=== PATIENT | female | born 1970 | race African-American/Black ===

== ENCOUNTER 2018-06-28 13:22 | Emergency (ER) | payer OTHER ==
[2018-06-28 13:41] VITALS: BP 122/78; PULSE 73; TEMP 97.9; BMI 25.6
[2018-06-28] MEDS ORDERED: DEXAMETHASONE SOD PHOSPHATE 10 MG/1 ML VIAL IM ONE (15:37)
[2018-06-28] MEDS ORDERED: DEXAMETHASONE SOD PHOSPHATE 10 MG/1 ML VIAL ONE (15:42)
--- NOTE | 2018-06-28 15:45 | PDOC ---
History of Present Illness - General Chief Complaint: Allergic Reaction Stated Complaint: SKIN RASH Time Seen by Provider: 06/28/18 15:10 History Source: Patient Exam Limitations: Clinical Condition - History of Present Illness Initial Comments: 06/28/18 16:32 Patient with no significant past medical history present with complaint of rash to face, anterior posterior neck area after using her shampoo. Patient reported ALLERGIC reaction to certain chemicals in hair shampoos but uncertain what caused this ALLERGIC reaction. Reported itching over rash area. Denies shortness of breath, choking sensation, lip or tongue swelling. Denies any other symptoms Timing/Duration: other (3 days) Past History - Past Medical History Allergies/Adverse Reactions: Allergies Allergy/AdvReac Type Severity Reaction Status Date / Time No Known Allergies Allergy Verified 06/28/18 13:37 Home Medications: Ambulatory Orders Hydrocortisone 2.5% Lotion [Hytone 2.5% Lotion -] 1 applic TP BID #1 bottle Hydroxyzine HCl 25 mg PO Q8H PRN #20 tablet 06/28/18 Prednisone [Deltasone] 20 mg PO BID 5 Days #10 tablet 06/28/18 - Suicide/Smoking/Psychosocial Hx Smoking History: Never smoked Hx Alcohol Use: No Drug/Substance Use Hx: No Review of Systems - Review of Systems Able to Perform ROS?: Yes Is the patient limited Persian proficient: No Constitutional: No: Chills, Fever, Malaise HEENTM: No: Symptoms Reported Respiratory: No: Symptoms reported, Shortness of Breath Cardiac (ROS): No: Symptoms Reported, Lightheadedness, Chest Tightness ABD/GI: No: Symptoms Reported Musculoskeletal: No: Symptoms Reported Integumentary: Yes: See HPI, Pruritus (over rash area), Rash (to face, neck and upper back) All Other Systems: Reviewed and Negative *Physical Exam - Vital Signs Last Vital Signs Temp Pulse Resp BP Pulse Ox 97.9 F 73 20 122/78 99 06/28/18 13:37 06/28/18 13:37 06/28/18 13:37 06/28/18 13:37 06/28/18 13:37 - Physical Exam Comments: 06/28/18 16:35 GENERAL: Well developed, well nourished. Awake and alert. No acute distress. HEENT: Normocephalic, atraumatic. PERRLA, EOMI. No conjunctival pallor. Sclera are non-icteric. Moist mucous membranes. Oropharynx is clear. NECK: Supple. Full ROM. CARDIOVASCULAR: Regular rate and rhythm. No murmurs, rubs, or gallops. Distal pulses are 2+ and symmetric. PULMONARY: No evidence of respiratory distress. Lungs clear to auscultation bilaterally. No wheezing, rales or rhonchi. ABDOMINAL: Soft. Non-tender. Non-distended. No rebound or guarding. No organomegaly. Normoactive bowel sounds. MUSCULOSKELETAL Normal range of motion at all joints. SKIN: Warm and dry. Normal capillary refill. Multiple urticarial rash to face, anterior neck area and upper back without excoriations. NEUROLOGICAL: Alert, awake, appropriate. Gait is normal without ataxia. PSYCHIATRIC: Cooperative. Good eye contact. Appropriate mood General Appearance: Yes: Nourished, Appropriately Dressed. No: Apparent Distress Medical Decision Making - Medical Decision Making 06/28/18 16:36 Patient with no significant past medical history present with for evaluation of ALLERGIC reaction after using hair product. Exam significant for multiple urticarial rash to face, anterior neck and posterior upper back without excoriations. Symptoms consistent with ALLERGIC reaction. Sliding Decadron 10 mg IM ordered. Patient on by mouth prednisone, hydroxyzine and directed and antihistamine with dermatology follow-up. *DC/Admit/Observation/Transfer Diagnosis at time of Disposition: Allergic dermatitis - Discharge Dispostion Disposition: HOME Condition at time of disposition: Stable Decision to Admit order: No - Prescriptions Prescriptions: Hydrocortisone 2.5% Lotion [Hytone 2.5% Lotion -] 1 applic TP BID #1 bottle Hydroxyzine HCl 25 mg PO Q8H PRN #20 tablet PRN Reason: allergic reaction Prednisone [Deltasone] 20 mg PO BID 5 Days #10 tablet - Referrals Referrals: Mile Jane MD [Staff Physician] - Karine Doherty [Non Staff, Medical] - - Patient Instructions Printed Discharge Instructions: Contact Dermatitis Additional Instructions: Take medication as prescribed. Follow-up referred messenger copy Dr. Jaen for ALLERGIC reaction. Also follow-up with referred ALLERGY clinic for possible ALLERGY testing. - Post Discharge Activity
== END 2018-06-28 15:48 | disposition home or self-care (01) ==
LOC: JERFT 13:22
PROC: 3E0233Z Introduction of Anti-inflammatory into Muscle, Percutaneous Approach (ICD-10-PCS; principal; 2018-06-28)
DX: T55.0X1A Toxic effect of soaps, accidental (unintentional), initial encounter (principal); L23.5 Allergic contact dermatitis due to other chemical products; Y92.018 Other place in single-family (private) house as the place of occurrence of the external cause
CPT/HCPCS: 96372; 99281-25; J1100

== ENCOUNTER 2018-07-18 20:39 | Emergency (ER) | payer OTHER ==
--- NOTE | 2018-07-18 20:44 | PDOC ---
Rapid Medical Evaluation Time Seen by Provider: 07/18/18 20:42 Medical Evaluation: Allergies Allergy/AdvReac Type Severity Reaction Status Date / Time No Known Allergies Allergy Verified 06/28/18 13:37 07/18/18 20:42 I have performed a brief in-person evaluation of this patient. The patient presents with a chief complaint of: "I have a head cold for 3-4 days." Pertinent physical exam findings: OP- mildly erythematous. Lungs CTAB I have ordered the following: nothing The patient will proceed to the ED for further evaluation. Discharge Disposition - Diagnosis URI (upper respiratory infection) - Referrals - Patient Instructions - Post Discharge Activity
[2018-07-18 20:45] VITALS: BP 133/74; PULSE 85; TEMP 98.2; BMI 24.7
--- NOTE | 2018-07-18 21:54 | PDOC ---
History of Present Illness - General Chief Complaint: Cold Symptoms Stated Complaint: COLD SYMPTOMS Time Seen by Provider: 07/18/18 20:42 - History of Present Illness Initial Comments: 07/18/18 21:52 48-year-old female without comorbidities presents for evaluation of sinus pressure and congestion 3 days without fever Past History - Past Medical History Allergies/Adverse Reactions: Allergies Allergy/AdvReac Type Severity Reaction Status Date / Time No Known Allergies Allergy Verified 07/18/18 20:44 Home Medications: Ambulatory Orders Hydroxyzine HCl 25 mg PO Q8H PRN #20 tablet 06/28/18 Prednisone [Deltasone] 20 mg PO BID 5 Days #10 tablet 06/28/18 Halobetasol Prop 0.05% Tp Crm [Ultravate (Nf) -] 1 applic TP BID #60 gm Amox-Tr/K Cl [Augmentin - 875Mg Tablet] 1 tab PO BID #20 tablet 07/18/18 Budesonide [Rhinocort Allergy] 1 spray NS ONCE #1 spray.pump 07/18/18 COPD: No - Suicide/Smoking/Psychosocial Hx Smoking History: Never smoked Hx Alcohol Use: No Drug/Substance Use Hx: No Review of Systems - Review of Systems Constitutional: No: Fever HEENTM: Yes: Nose Congestion *Physical Exam - Vital Signs Last Vital Signs Temp Pulse Resp BP Pulse Ox 98.2 F 85 20 133/74 98 07/18/18 20:42 07/18/18 20:42 07/18/18 20:42 07/18/18 20:42 07/18/18 20:42 - Physical Exam Comments: 07/18/18 21:52 HEAD: NC/AT tenderness frontal and maxillary sinuses EYES: Conjuntiva clear Ears: Canals and TM's normal NOSE: No d/c THROAT: Moist mucous membrances, oral pharanx clear, uvula midline NECK: Supple without adenopathy CARDIAC: S1 S2 LUNGS: CTA Full and Equal breath sounds ABDOMEN: Soft NT ND MS: Full ROM in all joints without edema NEUROLOGIC: No gross sensory or motor deficits, NVID SKIN: Normal color and temperature no lesions or rashes Medical Decision Making - Medical Decision Making 07/18/18 21:52 We'll treat with Augmentin and Rhinocort *DC/Admit/Observation/Transfer Diagnosis at time of Disposition: URI (upper respiratory infection), Sinusitis - Discharge Dispostion Disposition: HOME Condition at time of disposition: Stable Decision to Admit order: No - Prescriptions Prescriptions: Amox-Tr/K Cl [Augmentin - 875Mg Tablet] 1 tab PO BID #20 tablet Budesonide [Rhinocort Allergy] 1 spray NS ONCE #1 spray.pump - Referrals Referrals: Gloria Jensen MD [Primary Care Provider] - Taqueria Rodriguez MD [Staff Physician] - - Patient Instructions Printed Discharge Instructions: Sinusitis, DI for Sinusitis Additional Instructions: Please take the antibiotics as directed and use the nasal spray as directed. Follow-up with ENT in one to 2 days for further evaluation and treatment options and return to the emergency room should symptoms worsen or go unresolved. - Post Discharge Activity
== END 2018-07-18 22:05 | disposition home or self-care (01) ==
LOC: JERFT 20:39
DX: J01.90 Acute sinusitis, unspecified (principal); J06.9 Acute upper respiratory infection, unspecified
CPT/HCPCS: 99281-25

== ENCOUNTER 2018-12-29 14:03 | Emergency (ER) | payer OTHER ==
[2018-12-29 14:17] VITALS: BP 140/93; PULSE 96; TEMP 98.1; BMI 25.6
--- NOTE | 2018-12-29 14:17 | PDOC ---
Rapid Medical Evaluation Chief Complaint: Back Pain Time Seen by Provider: 12/29/18 14:13 Medical Evaluation: Allergies Allergy/AdvReac Type Severity Reaction Status Date / Time No Known Allergies Allergy Verified 07/18/18 20:44 12/29/18 14:13 48 year old female c/o low back pain reports that she has used cocaine in past with pain relief. reports muscle relaxer usually helps with pain. patient reports she chronically has numbness to extremity. denies incontinence of bowel and urine PE: Patient alert ox3.; A: back pain P: patient to the ER for further management of care Discharge Disposition - Diagnosis Low back pain Qualifiers: Chronicity: acute Back pain laterality: unspecified Sciatica presence: without sciatica Qualified Code(s): M54.5 - Low back pain - Referrals - Patient Instructions - Post Discharge Activity
[2018-12-29] MEDS ORDERED: LIDOCAINE 5% TOPICAL PATCH TP ONE (15:39)
[2018-12-29] MEDS ORDERED: CYCLOBENZAPRINE HCL 10 MG TABLET (FP) PO ONE (15:53)
--- NOTE | 2018-12-29 15:53 | PDOC ---
History of Present Illness - General Chief Complaint: Back Pain Stated Complaint: BACK PAIN Time Seen by Provider: 12/29/18 14:13 History Source: Patient Exam Limitations: No Limitations Past History - Past Medical History Allergies/Adverse Reactions: Allergies Allergy/AdvReac Type Severity Reaction Status Date / Time No Known Allergies Allergy Verified 12/29/18 14:17 Home Medications: Ambulatory Orders Hydroxyzine HCl 25 mg PO Q8H PRN #20 tablet 06/28/18 Prednisone [Deltasone] 20 mg PO BID 5 Days #10 tablet 06/28/18 Halobetasol Prop 0.05% Tp Crm [Ultravate (Nf) -] 1 applic TP BID #60 gm Amox-Tr/K Cl [Augmentin - 875Mg Tablet] 1 tab PO BID #20 tablet 07/18/18 Budesonide [Rhinocort Allergy] 1 spray NS ONCE #1 spray.pump 07/18/18 Cyclobenzaprine HCl [Flexeril -] 10 mg PO TID PRN #21 tablet 12/29/18 Oxycodone HCl/Acetaminophen [Percocet 5-325 mg Tablet] 1 tab PO Q6H PRN #6 tablet MDD 4 12/29/18 COPD: No Psychiatric Problems: Yes (ANXIETY) - Immunization History Immunization Up to Date: Yes - Psycho Social/Smoking Cessation Hx Smoking History: Never smoked Have you smoked in the past 12 months: No Information on smoking cessation initiated: No Hx Alcohol Use: No Drug/Substance Use Hx: Yes (COCAINE PREVIOUS) *Physical Exam - Vital Signs Last Vital Signs Temp Pulse Resp BP Pulse Ox 98.1 F 96 H 17 140/93 97 12/29/18 14:12/29/18 14:12/29/18 14:12/29/18 14:12/29/18 14:09 - Physical Exam General Appearance: No: Apparent Distress Respiratory/Chest: positive: Lungs Clear, Normal Breath Sounds. negative: Respiratory Distress Cardiovascular: positive: Regular Rhythm, Regular Rate, S1, S2. negative: Murmur Gastrointestinal/Abdominal: positive: Normal Bowel Sounds, Soft. negative: Tender, Distended, Guarding, Rebound Musculoskeletal: positive: Other (minimal lumbar paraspinal muscles). negative : CVA Tenderness, Vertebral Tenderness Neurologic: positive: Alert, Normal Mood/Affect, Motor Strength 5/5, Other ( ambulatory). negative: Sensory Deficit Medical Decision Making - Medical Decision Making 48 y/o F hx of anxiety, chronic LBP, herniated disc presents with acute on chronic LBP x 5 days. Mentions does a lot of heavy lifting so not sure if that exacerbated her pain. Last MRI of her back was 2 years ago. Denies trauma, fever URI sxs, sob, cp, abd pain, vomiting, weakness of extremities, prior back surgeries. Patient states she has been using percocet/oxycodone from family members to help with pain and that is the only thing which helps with pain. Acute on chronic LBP Istop reviewed and no controlled substances filled in the past 12 months Concern for substance abuse Tylenol, Ibuprofen, Toradol, Lido patch were all suggested but patient refused all of those meds Patient refused to take muscle relaxer without getting a pain medication D/W Dr. Recio - states okay to give 1 percocet for now and can give few pills to go home until she can see her PCP Also given Flexeril with meds 12/29/18 15:43 Discharge - Discharge Information Problems reviewed: Yes Clinical Impression/Diagnosis: Low back pain Qualifiers: Chronicity: acute Back pain laterality: unspecified Sciatica presence: without sciatica Qualified Code(s): M54.5 - Low back pain Condition: Stable Disposition: HOME - Admission No - Additional Discharge Information Prescriptions: Cyclobenzaprine HCl [Flexeril -] 10 mg PO TID PRN #21 tablet PRN Reason: Muscle Spasms Oxycodone HCl/Acetaminophen [Percocet 5-325 mg Tablet] 1 tab PO Q6H PRN #6 tablet MDD 4 PRN Reason: Pain Prescription Drug Monitoring Program (I-STOP) results: I-STOP reviewed and no issues identified - Follow up/Referral Referrals: Gloria Jensen MD [Primary Care Provider] - 2 Days - Patient Discharge Instructions Patient Printed Discharge Instructions: DI for Low Back Pain Additional Instructions: Thank you for choosing [facility]. It was a pleasure taking care of you. You may take Motrin 600 mg every 6 hours by mouth as needed for mild to moderate pain. Take Motrin with food. For severe pain, you may take Percocet. This medication can make you constipated for which you may take over the counter Senna tablets as needed. This medication can also make you drowsy so please be cautious with driving or performing heavy physical work. Take Flexeril as needed for muscle spasms. This medication can also make you drowsy Please follow-up with your doctor for further evaluation Return to the Emergency Department if your symptoms worsen or persist, you have chest pain, severe abdominal pain, vomiting, weakness of extremities (arms and/ or legs), difficulty controlling bowel or bladder movements or other concerning symptoms. - Post Discharge Activity
[2018-12-29] MEDS ORDERED: CYCLOBENZAPRINE HCL 10 MG TABLET (FP) ONE (16:00)
== END 2018-12-29 16:24 | disposition home or self-care (01) ==
LOC: JERFT 14:03
DX: M54.5 Low back pain (principal); F41.9 Anxiety disorder, unspecified
CPT/HCPCS: 99282-25

== ENCOUNTER 2019-01-04 12:45 | Emergency (ER) | payer OTHER ==
--- NOTE | 2019-01-04 12:48 | PDOC ---
Rapid Medical Evaluation Time Seen by Provider: 01/04/19 12:47 Medical Evaluation: Allergies Allergy/AdvReac Type Severity Reaction Status Date / Time No Known Allergies Allergy Verified 12/29/18 14:17 01/04/19 12:47 CC: "My throat is swelling." PE: Sublingual lesion noted. No firm to palpation. No submandibular tightness present. Uvula midline. No stridor, drooling OP edema. Lungs CTAB. Started mupirocin for facial rash 01/01. Orders: Benadryl, pepcid, solumedrol Patient will proceed to ER for further evaluation. 01/04/19 12:49 Discharge Disposition - Diagnosis Sensation of swollen throat - Referrals - Patient Instructions - Post Discharge Activity
[2019-01-04 12:52] VITALS: TEMP 98; BMI 25.6
[2019-01-04] MEDS ORDERED: methylPREDNISolone NA SUCC 125 MG/2 ML VIAL IVPUSH ONE (12:53)
[2019-01-04] MEDS ORDERED: FAMOTIDINE 20 MG/50 ML IVPB 20 MG/50 ML MG IVPB ONE ×2 (12:53→13:02)
[2019-01-04] MEDS ORDERED: methylPREDNISolone NA SUCC 125 MG/2 ML VIAL ONE (13:02)
--- NOTE | 2019-01-04 13:18 | PDOC ---
History of Present Illness - General Chief Complaint: Allergic Reaction Stated Complaint: ALLERGIC REACTION Time Seen by Provider: 01/04/19 12:47 History Source: Patient Exam Limitations: No Limitations - History of Present Illness Initial Comments: 01/04/19 13:18 Betina Parikh is a 48F with PMH anxiety c/b facial excoriations, chronic lower back pain presenting with one day of tongue and lip swelling after using topical mupirocin. Patient was seen at [facility] 12/29/18 for facial excoriations from picking due to her anxiety. Was given mupirocin cream and sent home. Reports yesterday began having tongue swelling, pain under tongue, and excessive drooling. Today reports that swelling has worsened to now include lips and larger tongue. Denies difficulty breathing, able to speak normally, able to swallow solids and liquids. Denies skin rash. Only known allergy is hair products that are no longer being used. Denies new foods, skin products, beauty products, or wildlife exposures. Has been taking Percocet, Meloxicam, and Flexeril for chronic back pain without issue, no new medications other than mupirocin or any dosage changes. Denies headache, chest pain, SOB, dizziness, abd pain, urinary sx, N/V, fever, C /D. Describes emotional lability and anxiety at times, nervously picks at her face. Is not any medications for psych reasons, has appointment to see therapist tomorrow. Denies SI/HI. Past History - Past Medical History Allergies/Adverse Reactions: Allergies Allergy/AdvReac Type Severity Reaction Status Date / Time hair dye Allergy Uncoded 01/04/19 12:52 Home Medications: Ambulatory Orders Hydroxyzine HCl 25 mg PO Q8H PRN #20 tablet 06/28/18 Prednisone [Deltasone] 20 mg PO BID 5 Days #10 tablet 06/28/18 Halobetasol Prop 0.05% Tp Crm [Ultravate (Nf) -] 1 applic TP BID #60 gm Amox-Tr/K Cl [Augmentin - 875Mg Tablet] 1 tab PO BID #20 tablet 07/18/18 Budesonide [Rhinocort Allergy] 1 spray NS ONCE #1 spray.pump 07/18/18 Cyclobenzaprine HCl [Flexeril -] 10 mg PO TID PRN #21 tablet 12/29/18 Oxycodone HCl/Acetaminophen [Percocet 5-325 mg Tablet] 1 tab PO Q6H PRN #6 tablet MDD 4 12/29/18 COPD: No Psychiatric Problems: Yes (ANXIETY) Other medical history: arthritis - Immunization History Immunization Up to Date: Yes - Psycho Social/Smoking Cessation Hx Smoking History: Never smoked Have you smoked in the past 12 months: No Information on smoking cessation initiated: No Hx Alcohol Use: No Drug/Substance Use Hx: No Review of Systems - Review of Systems Able to Perform ROS?: Yes Is the patient limited Georgian proficient: No Constitutional: No: Chills, Fever, Weakness HEENTM: Yes: Mouth Pain, Difficulty Swallowing, Mouth Swelling. No: Blurred Vision, Recent change in vision, Hearing Loss, Throat Pain, Throat Swelling, Dental Problems Respiratory: No: Cough, Shortness of Breath, Stridor, Wheezing, Hemoptysis Cardiac (ROS): No: Chest Pain, Edema, Lightheadedness, Palpitations, Syncope ABD/GI: No: Constipated, Diarrhea, Nausea, Poor Appetite, Poor Fluid Intake, Vomiting : No: Burning, Dysuria, Discharge, Frequency, Flank Pain, Hematuria, Incontinence Musculoskeletal: Yes: Back Pain. No: Joint Pain, Joint Swelling, Muscle Weakness, Neck Pain Integumentary: No: Erythema, Flushing, Lesions, Pruritus, Rash Neurological: No: Headache, Numbness, Paresthesia, Tremors, Weakness, Unsteady Gait Psychiatric: Yes: Anxiety, Mood Swings Endocrine: No: Symptoms Reported Hematologic/Lymphatic: No: Symptoms Reported All Other Systems: Reviewed and Negative *Physical Exam - Vital Signs Last Vital Signs Temp Pulse Resp BP Pulse Ox 98 F 82 19 121/59 L 99 01/04/19 12:49 01/04/19 12:49 01/04/19 12:49 01/04/19 12:49 01/04/19 12:49 - Physical Exam General Appearance: Yes: Nourished, Appropriately Dressed. No: Apparent Distress HEENT: positive: EOMI, TARUN, Normal Voice, Symmetrical, Hearing Grossly Normal, Other (enlargement of the tongue with swelling below tongue that is tender to palpation, upper and lower lip edema, face sensation intact to LT bilaterally, makeup applied but no actively weeping or bleeding lesions to face notable). negative: Scleral Icterus (R), Scleral Icterus (L), Tonsillar Exudate, Tonsillar Erythema, Lesions, Excessive drooling Neck: positive: Supple. negative: Tender, Rigid, Decreased range of motion, Stridor, Lymphadenopathy (R), Lymphadenopathy (L) Respiratory/Chest: positive: Lungs Clear, Normal Breath Sounds. negative: Respiratory Distress, Crackles, Rales, Rhonchi, Stridor, Wheezing Cardiovascular: positive: Regular Rhythm, Regular Rate. negative: Murmur, Tachycardia Gastrointestinal/Abdominal: positive: Normal Bowel Sounds, Flat, Soft. negative : Tender Musculoskeletal: positive: Normal Inspection Extremity: positive: Normal Capillary Refill, Normal Inspection, Normal Range of Motion. negative: Tender Integumentary: positive: Normal Color, Dry, Warm. negative: Erythema, Cold, Clammy, Diaphoresis, Hives, Rash Neurologic: positive: Fully Oriented, Alert, Normal Mood/Affect, Normal Response , Other Medical Decision Making - Medical Decision Making 01/04/19 13:18 Betina Parikh is a 48F with H anxiety c/b facial excoriations, chronic lower back pain presenting with one day of tongue and lip swelling after using topical mupirocin. Patient evaluated by RME, given Benadryl, Solu-Medrol, and famotidine IV for non -anaphylactic angioedema. On evaluation, patient is protecting her airway, speaking is full sentences, is not drooling, has no rash or pruritis, and is not exhibiting wheezing or stridor on exam. Patient has isolated tongue and lip swelling that is not concerning for development of anaphylaxis at this time given that her symptoms were slow onset and began last night without significant worsening and airway compromise. Has already been given appropriate medications, given low risk of development of acute anaphylaxis at this time, is stable to go home. Advising patient to cease mupirocin use and to use OTC famotidine and Benadryl until symptoms resolve, with strict return precautions and follow-up with her primary physician. Discharge - Discharge Information Problems reviewed: Yes Clinical Impression/Diagnosis: Sensation of swollen throat Angioedema Qualifiers: Encounter type: initial encounter Qualified Code(s): T78.3XXA - Angioneurotic edema, initial encounter Condition: Stable Disposition: HOME - Admission No - Follow up/Referral Referrals: Gloria Jensen MD [Primary Care Provider] - - Patient Discharge Instructions Patient Printed Discharge Instructions: DI for Adverse Drug Reaction -- Allergic Additional Instructions: Today you were evaluated for swelling and pain in your throat after using mupirocin on your face. You were evaluated here and we do not think you are in any danger of becoming unable to breath from your medication use. We gave you steroids, Pepcid, and Benadryl for your swelling, which should stop your tongue from getting larger. Please stop using the mupirocin jelly as it is probably the culprit. We do not think that you need further antibiotic creams for your face at this time; if you must use some, you can go to the pharmacy and cigar packer and picker Neosporin cream as this should not affect your tongue. Please take Pepcid twice a day, and Benadryl every 4 hours as long as your symptoms persist. These medications are available over the counter and can be found at any pharmacy. For your pain, feel free to take whatever pain medications you normally do, including your Percocet. Please see your primary doctor in the next 3 days for further care, and definitely see a mental health professional for your anxiety, as this is very important for your overall health and well-being. If you experience worsening difficulty breathing, a new rash, fever, abdominal pain, shortness of breath, suicidal thoughts, or any other new or concerning symptoms, please return to the emergency room immediately. - Post Discharge Activity Work/Back to School Note: Back to Work
--- NOTE | 2019-01-04 13:59 | PDOC ---
Attending Attestation - Resident Resident Name: ChrismarkieJudeTad - ED Attending Attestation I have performed the following: I have examined & evaluated the patient, The case was reviewed & discussed with the resident, I agree w/resident's findings & plan, Exceptions are as noted - HPI HPI: 01/04/19 13:55 Patient is a 48-year-old female complaining of swelling of her lips and tongue after administration of topical Bactroban for the treatment of facial excoriations. pt states that she was drooling prior to arrival. - Physicial Exam PE: 01/04/19 13:58 Patient is awake and alert, well-appearing, in no distress Normocephalic and atraumatic PERRLA, EOMI No angioedema of the lips/tongue/uvula No stridor Lungs are clear to auscultation bilaterally - Medical Decision Making 01/04/19 13:57 48-year-old female presents to the ER complaining of atraumatic swelling of her lips and tongue associated with drooling after administration of topical Bactroban cream. In the ER, patient is awake and alert, with no evidence of airway compromise. There is no evidence of angioedema of the lips, tongue, uvula is midline and appears nonedematous; there is no evidence of stridor and no wheezing. I do not suspect an acute allergic reaction at this time. Patient is already received Solu-Medrol, H2 heidi and Benadryl. There is no indication for prolonged observation at this time. Will discharge. 01/04/19 13:57
[2019-01-04 19:43] VITALS: BP 134/82; PULSE 64
== END 2019-01-04 14:08 | disposition home or self-care (01) ==
LOC: JER 12:45
PROC: 3E033GC Introduction of Other Therapeutic Substance into Peripheral Vein, Percutaneous Approach (ICD-10-PCS; principal; 2019-01-04)
DX: T78.3XXA Angioneurotic edema, initial encounter (principal); R09.89 Other specified symptoms and signs involving the circulatory and respiratory systems; G89.29 Other chronic pain; M19.90 Unspecified osteoarthritis, unspecified site
CPT/HCPCS: 99282-25

== ENCOUNTER 2020-01-11 17:29 | Emergency (ER) | payer OTHER ==
[2020-01-11 17:39] VITALS: BP 130/80; PULSE 70; TEMP 97.7; BMI 24.7
[2020-01-11] MEDS ORDERED: TETRACAINE 0.5% OPHTH SOLN 2 ML BOTTLE OU ONE (18:04)
[2020-01-11] MEDS ORDERED: FLUORESCEIN NA 1 EA STRIP OU ONE (18:04)
[2020-01-11] MEDS ORDERED: FLUORESCEIN NA 1 EA STRIP ONE (18:08)
[2020-01-11] MEDS ORDERED: TETRACAINE 0.5% OPHTH SOLN 2 ML BOTTLE ONE (18:08)
--- NOTE | 2020-01-11 18:08 | PDOC ---
History of Present Illness - General Chief Complaint: Foreign Body (FB) Stated Complaint: EYE PAIN Time Seen by Provider: 01/11/20 17:51 History Source: Patient Exam Limitations: No Limitations - History of Present Illness Initial Comments: 01/11/20 18:05 49 year-old no past medical history presents the ED with bilateral eye irritation. Patient states that she has been using a new face wash over the last 2 to 3 days and has began to get an eye irritation bilaterally with associated photophobia and pain as well as blurry vision. Patient states that she washed her eyes out copiously with water which made the symptoms better but not completely. Denies contact or glasses use. Pt otherwise denies: fevers, chills, syncope, lightheadedness, dizziness, headaches, neck pain, chest pain, shortness of breath, palpitations, back pain, abdominal pain. Past History - Medical History Allergies/Adverse Reactions: Allergies Allergy/AdvReac Type Severity Reaction Status Date / Time hair dye Allergy Uncoded 01/11/20 17:31 Home Medications: Ambulatory Orders Hydroxyzine HCl 25 mg PO Q8H PRN #20 tablet 06/28/18 predniSONE [Deltasone] 20 mg PO BID 5 Days #10 tablet 06/28/18 Halobetasol Prop 0.05% Tp Crm [Ultravate (Nf) -] 1 applic TP BID #60 gm 06/29/18 Amox-Tr/K Cl [Augmentin - 875Mg Tablet] 1 tab PO BID #20 tablet 07/18/18 Budesonide [Rhinocort Allergy] 1 spray NS ONCE #1 spray.pump 07/18/18 Cyclobenzaprine HCl [Flexeril -] 10 mg PO TID PRN #21 tablet 12/29/18 Oxycodone HCl/Acetaminophen [Percocet 5-325 mg Tablet] 1 tab PO Q6H PRN #6 tablet MDD 4 12/29/18 Ibuprofen [Ibu] 600 mg PO BID #14 tablet 01/11/20 Ofloxacin 5 ml OP QID #1 drops 01/11/20 COPD: No Psychiatric Problems: Yes (ANXIETY) - Reproductive History Is Patient Now?: No - Immunization History Immunization Up to Date: Yes - Psycho-Social/Smoking History Smoking History: Never smoked Have you smoked in the past 12 months: No - Substance Abuse Hx (Audit-C & DAST Scrn) How often the patient has a drink containing alcohol: Never Score: In Men: 4 or > Positive; In Women: 3 or > Positive: 0 Screen Result (Pos requires Nsg. Audit-10AR): Negative In the last yr the pt used illegal drug/Rx for NonMed reason: No Score: Yes response is considered Positive: 0 Screen Result (Positive result requires Nsg. DAST-10): Negative *Physical Exam - Vital Signs Last Vital Signs Temp Pulse Resp BP Pulse Ox 97.7 F 70 18 130/80 100 01/11/20 17:32 01/11/20 17:32 01/11/20 17:32 01/11/20 17:32 01/11/20 17:32 - Physical Exam 01/11/20 18:07 Gen: AAOx 3, no acute distress, comfortable, no signs of respiratory distress HENT: atraumatic, normocephalic with no laceration or contusion. Nasal mucosa without erythema. Oropharynx without erythema or exudates. Mucous membranes moist. EYES: TARUN and EOMI. No pin-point pupils on exam. No signs of conjunctivitis vs injection to the eyes. No resting nystagmus. No signs of hordeolum or chalazion . No purulent drainage. No Delfino Hunn pupils or Kirill's syndrome. No lid edema or proptosis to the eye. No entrapment of extraocular muscles. Peripheral visual ospina intact. VA: OS 20/50 OD 20/40 OU 20/40 NECK: supple; trachea midline; no JVD, no lymphadenopathy, or thyromegaly CV: RRR no murmurs, gallops, or rubs. CHEST: CTA b/l no wheezing, rales or rhonchi ABD: +BS/ND. no TTP; soft, no rebound, no guarding EXTREMITY: no cyanosis or erythema. 2+ dorsalis pedis, posterior tibial, and radial pulse. No pedal edema; no calf swelling or tenderness NEURO: normal speech, CN II-XII intact, sensation intact, normal gait, no cerebellar deficits MS: 5/5 strength in all extremities, FROM intact in all extremities. Medical Decision Making - Medical Decision Making 01/11/20 18:07 49-year-old female with bilateral eye irritation stable Will perform tetracaine fluorescein test and reassess Tetracaine placed to b/l eyes to numb eyes. Eyelids inverted to r/o foreign body. No foreign body visualized b/l. Fluorescein dye placed in b/l eyes to r/o corneal abrasion. uptake of fluorescein dye B/L at the 6 oclock position consistent with corneal abrasion. No ice-rink sign. Pts vision is stable. Will apply erythromycin ointment in ED and discharge with close ophthalmology follow up as well as with ofloxacin drops. Pt appears well and is safe and stable for discharge with strict return precautions including signs and symptoms requring immediate return to the ED Supportive care instructions explained and given to pt. Reasons to return emergently to ER explained and given. Importance of follow up with PMD and other specialists as indicated stressed to pt. Pt verbalized understanding of instructions. Pt to follow up with PMD in 2 days. Discharge - Discharge Information Problems reviewed: Yes Clinical Impression/Diagnosis: Corneal abrasion Qualifiers: Encounter type: initial encounter Laterality: unspecified laterality Qualified Code(s): S05.00XA - Injury of conjunctiva and corneal abrasion without foreign body, unspecified eye, initial encounter Condition: Stable Disposition: HOME - Additional Discharge Information Prescriptions: Ibuprofen [Ibu] 600 mg PO BID #14 tablet Ofloxacin 5 ml OP QID #1 drops - Follow up/Referral Referrals: Ariel Jordan MD [Staff Physician] - Ayaz Jordan [Non Staff, Medical] - - Patient Discharge Instructions Patient Printed Discharge Instructions: DI for Corneal Abrasion Additional Instructions: Use the drops 4 times a day and the ointment at night YOU MUST FOLLOW UP WITH AN EYE DOCTOR - Post Discharge Activity
--- OUTSIDE RECORDS SUMMARY | 2020-01-11 18:11 | XMS ---
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 PG)</content> Platelet mean 8.0-11.0 <content Saint volume [Entitic styleCode="Bold Brett volume] in Blood ">Mean Platelet Medical by Automated Volume Center count </content>10.4 FL<content styleCode="Ital ics"> (8.0-11.0 FL)</content> Erythrocyte 11.5-14. Above high <content Saint distribution 5 normal styleCode="Bold Brett width [Ratio] by ">Red Cell Medical Automated count Distribution Center Width </content>15.1 % H<content styleCode="Ital ics"> (11.5-14.5 %)</content> Erythrocyte mean 32.0-37. Below low normal <content Saint corpuscular 0 styleCode="Bold Brett hemoglobin ">Mean Corpus. Medical concentration Hgb Center [Mass/volume] by Concentration Automated count (MCHC) </content>31.8 G/DL L<content styleCode="Ital ics"> (32.0-37.0 G/DL)</content> Platelets 130-400 Above high <content Saint [#/volume] in normal styleCode="Bold Brett Blood by ">Platelet Medical Automated count Count Center </content>410 KCUMM H<content styleCode="Ital ics"> (130-400 KCUMM)</content > UNK 1.0-4.8 <content Saint styleCode="Bold Brett ">Lymphocyte Medical Count Center </content>2.64 KCUMM<content styleCode="Ital ics"> (1.0-4.8 KCUMM)</content > UNK 1.6-7.3 <content Saint styleCode="Bold Brett ">Neutrophil Medical Count Center </content>4.30 KCUMM<content styleCode="Ital ics"> (1.6-7.3 KCUMM)</content > Lymphocytes 24.0-44. <content Saint [#/volume] in 0 styleCode="Bold Brett Blood by ">Lymphocyte Medical Automated count </content>33.3 Center %<content styleCode="Ital ics"> (24.0-44.0 %)</content> Monocytes 3.0-10.0 <content Saint [#/volume] in styleCode="Bold Brett Blood by ">Monocyte Medical Automated count </content>9.8 Center %<content styleCode="Ital ics"> (3.0-10.0 %)</content> Neutrophils 36-66 <content Saint [#/volume] in styleCode="Bold Brett Blood by ">Neutrophil Medical Automated count </content>54.2 Center %<content styleCode="Ital ics"> (36-66 %)</content> Basophils 0.0-1.0 <content Saint [#/volume] in styleCode="Bold Brett Blood by ">Basophil Medical Automated count </content>1.0 Center %<content styleCode="Ital ics"> (0.0-1.0 %)</content> UNK 0.0-0.6 <content Saint styleCode="Bold Brett ">Eosinophil Medical Count Center </content>0.11 KCUMM<content styleCode="Ital ics"> (0.0-0.6 KCUMM)</content > UNK 0.2-0.9 <content Saint styleCode="Bold Brett ">Monocyte Medical Count Center </content>0.78 KCUMM<content styleCode="Ital ics"> (0.2-0.9 KCUMM)</content > Eosinophils 0-5.0 <content Saint [#/volume] in styleCode="Bold Brett Blood by ">Eosinophil Medical Automated count </content>1.4 Center %<content styleCode="Ital ics"> (0-5.0 %)</content> UNK 0.0 <content Saint styleCode="Bold Brett ">Nucleated Red Medical Blood Cell Center Count </content>0.00 KCUMM<content styleCode="Ital ics"> (0.0 KCUMM)</content > UNK 0 <content Saint styleCode="Bold Brett ">Nucleated Red Medical Blood Cell Center </content>0.0 /100<content styleCode="Ital ics"> (0 /100)</content> UNK 0.0-0.3 <content Saint styleCode="Bold Brett ">Basophil Medical Count Center </content>0.08 KCUMM<content styleCode="Ital ics"> (0.0-0.3 KCUMM)</content > UNK 0-0.1 <content Saint styleCode="Bold Brett ">Immature Medical Granulocyte Center Count </content>0.02 KCUMM<content styleCode="Ital ics"> (0-0.1 KCUMM)</content > UNK < 1 <content Saint styleCode="Bold Brett ">Immature Medical Granulocyte Center Ratio </content>0.3 %<content styleCode="Ital ics"> (< 1 %)</content> ID Date Data Source GFR([id number]).[id number] 04/27/2019 05:38:00 PM EST [facility] 0-0500 Name Value Range Interpretation Code Description Data Steffany rce(s) Supporting Document(s ) UNK > 60 <content Saint Brett styleCode="Bold"> Medical Cent er EGFR </content>62 GFR<content styleCode="Italic s"> (> 60 GFR)</content> ID Date Data Source [id number] 04/27/2019 05:38:00 PM [facility] -0500 Name Value Range Interpretation Code Description Data Steffany rce(s) Supporting Document(s ) UNK 4.2-5.8 <content Saint [facility] styleCode="Bold" Medical Cente r >Hemoglobin A1C </content>5.8 %<content styleCode="Itali cs"> (4.2-5.8 %)</content> ID Date Data Source [id number] 04/27/2019 05:38:00 PM EST [facility] Name Value Range Interpretation Description Data Sup porting Code Source(s) Document(s ) Sodium 137-145 <content Saint [Moles/volume] styleCode="Iván Brett in Serum or d">Sodium Medical Plasma </content>139 Center MEQ/L<content styleCode="Gabriella lics"> (137-145 MEQ/L)</conten t> UNK 7-17 Above high normal <content Saint styleCode="Iván Brett d">BUN Medical </content>19 Center MG/DL H<content styleCode="Gabriella lics"> (7-17 MG/DL)</conten t> Creatinine 0.5-1.3 <content Saint [Mass/volume] styleCode="Iván Brett in Serum or d">Creatinine Medical Plasma </content>1.0 Center MG/DL<content styleCode="Gabriella lics"> (0.5-1.3 MG/DL)</conten t> Chloride 98-107 <content Saint [Moles/volume] styleCode="Iván Brett in Serum or d">Chloride Medical Plasma </content>104 Center MEQ/L<content styleCode="Gabriella lics"> (98-107 MEQ/L)</conten t> Carbon 22-30 <content Saint dioxide, total styleCode="Iván Brett [Moles/volume] d">Carbon Medical in Serum or Dioxide Center Plasma </content>27 MEQ/L<content styleCode="Gabriella lics"> (22-30 MEQ/L)</conten t> Potassium 3.5-5.3 <content Saint [Moles/volume] styleCode="Iván Brett in Serum or d">Potassium Medical Plasma </content>4.4 Center MEQ/L<content styleCode="Gabriella lics"> (3.5-5.3 MEQ/L)</conten t> Calcium 8.4-10.2 Above high normal <content Saint [Mass/volume] styleCode="Iván Brett in Serum or d">Calcium Medical Plasma </content>10.4 Center MG/DL H<content styleCode="Gabriella lics"> (8.4-10.2 MG/DL)</conten t> UNK > 60 <content Saint styleCode="Iván Brett d">EGFR Medical </content>62 Center GFR<content styleCode="Gabriella lics"> (> 60 GFR)</content> Glucose 74-106 <content Saint [Mass/volume] styleCode="Iván Brett in Serum or d">Glucose Medical Plasma </content>80 Center MG/DL<content styleCode="Gabriella lics"> (74-106 MG/DL)</conten t> Procedure Social History Code Duration Value Status Description Data Source(s ) Caffeine Use 04/27/2019 completed NEXTGEN ([facility] Details 12:00:00 AM [facility]) 04/27/2019 Occasional completed Occasional NEXTGEN ([facility] 12:00:00 AM cigarette smoker cigarette smoker J [facility]) Alcohol Use 04/27/2019 hard liquor 1 completed hard liquor 1 NEXTGEN ([facility] Details 12:00:00 AM drink drink [facility] occasionally occasionally [facility]) Smoking 04/27/2019 Unknown if ever completed Unknown if ever NEXT GEN ([facility] 12:00:00 AM smoked smoked [facility]) Smoking 03/16/2019 Denies Ever completed Denies Ever [place] [facility] 06:55:00 PM Smoked Smoked [facility] Cent[facility] r EST Smoking 03/16/2019 Denies Ever completed Denies Ever [place] [facility] 06:36:00 PM Smoked Smoked Medical Cente r EST Vital Signs ID Date Data Source UNK Name Value Range Interpretation Code Description Data Source(s) Oxygen saturation 96 % 96 % NEXTGEN ([facility] in Arterial blood [facility] by Pulse oximetry Center) Body mass index 26.70 kg/m2 Overweight 26.70 kg/m2 NEXTGEN ([facility] (BMI) [Ratio] [facility]) Res[facility] rate 18 /min 18 /[facility] Body temperature 36.22 Jeanette 36.22 Jeanette [facility] Heart rate 76 /min 76 /min [facility] ([facility]) Diastolic blood 64 mm[Hg] 64 mm[Hg] NEXTGEN ( [facility] pressure [facility]) Systolic blood 107 mm[Hg] 107 mm[Hg] NEXTGEN (S aint pressure [facility]) Body weight 66.224 kg 66.224 kg NEXTGEN (Griselda t [facility]) Body height 157.48 cm 157.48 cm [facility] ([facility]) Oxygen saturation 99 % 99 % NEXTGEN ([facility] in Arterial blood [facility] by Pulse oximetry Center) Body mass index 25.61 kg/m2 Overweight 25.61 kg/m2 NEXTGEN ([facility] (BMI) [Ratio] [facility]) Respiratory rate 19 /min 19 /min [facility] ([facility]) Body temperature 36.67 Jeanette 36.67 Jeanette [facility] Heart rate 63 /min 63 /min NEXTGEN ([facility]) Diastolic blood 74 mm[Hg] 74 mm[Hg] NEXTGEN ( [facility] pressure [facility]) Systolic blood 114 mm[Hg] 114 mm[Hg] [facility] ([facility]) Body weight 63.503 kg 63.503 kg [facility] ([facility]) Body height 157.48 cm 157.48 cm [facility] ([facility]) Body temperature 36.957019 [id number] Jeanette [facility] Respiratory rate 18 /min 18 /min [facility] Oxygen saturation 96 % 96 % [facility] Arterial blood [facility] by Pulse oximetry Heart rate 78 /min 78 /min [facility] Diastolic blood 82 mm[Hg] 82 mm[Hg] [facility] Systolic blood 128 mm[Hg] 128 mm[Hg] [facility] Body weight 65.190366 kg 65.413621 kg [facility] Body temperature 36.656257 [id number] Jeanette [facility] Respiratory rate 18 /min 18 /min [facility] Oxygen saturation 97 % 97 % [facility] by Pulse oximetry Heart rate 18 /min 18 /min [facility] Body height 160.454519 160.366796 cm [facility] Diastolic blood 97 mm[Hg] 97 mm[Hg] [facility] Systolic blood 131 mm[Hg] 131 mm[Hg] [facility] Body mass index 25.3 kg/m2 25.3 kg/m2 [facility] (BMI) [Ratio] Medical [facility] Patient Treatment Plan of Care Planned Activity Planned Date Details Description Data Source (s) Clindamycin 0.01 MG/MG 05/29/2019 12:00:00 NEXTGEN (Saint Topical Gel [Clindagel] [facility]) doxycycline hyclate 50 05/29/2019 12:00:00 NEXTGEN ([facility] MG Oral Tablet [facility]) Naproxen 500 MG Oral 04/27/2019 12:00:00 [facility] Tablet [facility])
[2020-01-11] MEDS ORDERED: ERYTHROMYCIN 0.5% OPHTHALMIC OINTMENT 3.5 GM TUBE OU ONE (18:18)
[2020-01-11] MEDS ORDERED: ERYTHROMYCIN 0.5% OPHTHALMIC OINTMENT 3.5 GM TUBE ONE (18:34)
[2020-01-11] MEDS ORDERED: IBUPROFEN 600 MG TABLET (FP) PO ONE (19:28)
[2020-01-11] MEDS ORDERED: ACETAMINOPHEN 650 MG/20.3 ML ORAL SOLUTION (CUPS) PO ONE (19:28)
[2020-01-11] MEDS ORDERED: ACETAMINOPHEN 325 MG TABLET (FP) ONE (19:29)
== END 2020-01-11 18:42 | disposition home or self-care (01) ==
LOC: JERFT 17:29
DX: S05.01XA Injury of conjunctiva and corneal abrasion without foreign body, right eye, initial encounter (principal); S05.02XA Injury of conjunctiva and corneal abrasion without foreign body, left eye, initial encounter
CPT/HCPCS: 99283-25

== ENCOUNTER 2020-09-04 09:20 | Emergency (ER) | payer OTHER ==
[2020-09-04 09:30] VITALS: BP 118/76; PULSE 63; TEMP 97.5; BMI 24.7
== END 2020-09-04 10:24 | disposition home or self-care (01) ==
LOC: JERFT 09:20 → JER 09:20 → JERFT 10:24
PROC: 3E0233Z Introduction of Anti-inflammatory into Muscle, Percutaneous Approach (ICD-10-PCS; principal; 2020-09-04)
DX: L03.211 Cellulitis of face (principal)
CPT/HCPCS: 99284-25

== ENCOUNTER 2020-09-27 10:29 | Emergency (ER) | payer OTHER ==
[2020-09-27 10:55] VITALS: BP 136/100; PULSE 87; TEMP 98.8; BMI 24.7
[2020-09-27] MEDS ORDERED: FAMOTIDINE 20 MG TABLET PO ONE (12:08)
== END 2020-09-27 12:50 | disposition home or self-care (01) ==
LOC: JER 10:29
DX: L30.9 Dermatitis, unspecified (principal)
CPT/HCPCS: 99283-25

== ENCOUNTER 2022-06-03 09:00 | Emergency (ER) | payer OTHER ==
[2022-06-03 09:11] VITALS: BP 131/71; PULSE 80; RESP 16; TEMP 98.2; BMI 25.6
[2022-06-03 10:15] LABS: THROAT:GRP A STREP NOT DETECTED (NOTDETECTED)
== END 2022-06-03 10:13 | disposition home or self-care (01) ==
LOC: JERFT 09:00
DX: J06.9 Acute upper respiratory infection, unspecified (principal)
CPT/HCPCS: 0241U-QW; 87651; 99283-25

== ENCOUNTER 2022-07-05 16:20 | Emergency (ER) | payer OTHER ==
[2022-07-05 16:50] VITALS: BP 138/77; PULSE 74; RESP 18; TEMP 98.1; BMI 25.6
[2022-07-05] MEDS ORDERED: DEXAMETHASONE SOD PHOSPHATE 10 MG/1 ML VIAL PO ONE (17:30)
[2022-07-05] MEDS ORDERED: ACETAMINOPHEN 500 MG TABLET (FP) PO ONE (17:30)
[2022-07-05] MEDS ORDERED: ACETAMINOPHEN 500 MG TABLET (FP) ONE (17:32)
[2022-07-05] MEDS ORDERED: DEXAMETHASONE SOD PHOSPHATE 10 MG/1 ML VIAL ONE (17:32)
[2022-07-05 18:09] LABS: THROAT:GRP A STREP NOT DETECTED (NOTDETECTED)
== END 2022-07-05 18:44 | disposition home or self-care (01) ==
LOC: JERFT 16:20
DX: J02.9 Acute pharyngitis, unspecified (principal); R51.9 Headache, unspecified; Z20.822 Contact with and (suspected) exposure to COVID-19
CPT/HCPCS: 0241U-QW; 87651; 99283-25; J1100

== ENCOUNTER 2022-12-09 09:30 | Emergency (ER) | payer OTHER ==
[2022-12-09 09:36] VITALS: BP 135/92; PULSE 66; RESP 18; TEMP 99; BMI 30.2
[2022-12-09] MEDS ORDERED: DEXAMETHASONE SOD PHOSPHATE 10 MG/1 ML VIAL IM ONE (10:39)
[2022-12-09] MEDS ORDERED: diphenhydrAMINE HCL 25 MG CAPSULE (FP) PO ONE (10:40)
[2022-12-09] MEDS ORDERED: DEXAMETHASONE SOD PHOSPHATE 10 MG/1 ML VIAL ONE (10:43)
[2022-12-09] MEDS ORDERED: DEXAMETHASONE SOD PHOSPHATE 10 MG/1 ML VIAL PO ONE (10:48)
== END 2022-12-09 10:51 | disposition home or self-care (01) ==
LOC: JERFT 09:30
DX: R21 Rash and other nonspecific skin eruption (principal); T78.40XA Allergy, unspecified, initial encounter
CPT/HCPCS: 99283-25; J1100

== ENCOUNTER 2023-05-31 14:18 | Emergency (ER) | payer OTHER ==
[2023-05-31 15:01] VITALS: BP 118/77; PULSE 66; RESP 18; TEMP 98; BMI 24.7
[2023-05-31] MEDS ORDERED: KETOROLAC TROMETHAMINE 30 MG/1 ML VIAL ONE (17:15)
[2023-05-31] MEDS ORDERED: METHOCARBAMOL 500 MG TABLET ONE (17:15)
[2023-05-31] MEDS ORDERED: ACETAMINOPHEN 500 MG TABLET (FP) ONE (17:16)
[2023-05-31] MEDS: KETOROLAC TROMETHAMINE 30 MG/1 ML VIAL IM ONE (17:28)
[2023-05-31] MEDS: METHOCARBAMOL 500 MG TABLET PO ONE (17:28)
[2023-05-31] MEDS: ACETAMINOPHEN 500 MG TABLET (FP) PO ONE (17:29)
== END 2023-05-31 19:52 | disposition home or self-care (01) ==
LOC: JERFT 14:18
PROC: 3E0233Z Introduction of Anti-inflammatory into Muscle, Percutaneous Approach (ICD-10-PCS; principal; 2023-05-31)
DX: M54.2 Cervicalgia (principal); M25.511 Pain in right shoulder; M79.10 Myalgia, unspecified site; S19.9XXA Unspecified injury of neck, initial encounter; S49.91XA Unspecified injury of right shoulder and upper arm, initial encounter; V89.2XXA Person injured in unspecified motor-vehicle accident, traffic, initial encounter; Y92.410 Unspecified street and highway as the place of occurrence of the external cause
CPT/HCPCS: 72050-TC-FY; 73030-TC-RT-FY; 99284-25

== ENCOUNTER 2024-01-14 10:12 | Emergency (ER) | payer OTHER ==
[2024-01-14 10:31] VITALS: BP 130/79; PULSE 70; RESP 20; TEMP 98.3; BMI 24.7
[2024-01-14] MEDS ORDERED: ACETAMINOPHEN 325 MG TABLET (FP) ONE (10:54)
[2024-01-14] MEDS: ACETAMINOPHEN 325 MG TABLET (FP) PO ONE (10:57)
== END 2024-01-14 11:18 | disposition home or self-care (01) ==
LOC: JERFT 10:12
DX: H92.03 Otalgia, bilateral (principal); R10.9 Unspecified abdominal pain; L23.9 Allergic contact dermatitis, unspecified cause
CPT/HCPCS: 99283-25